=== PATIENT | female | born 1960 | race Caucasian/White ===

== ENCOUNTER 2024-01-15 08:46 | Day surgery (SDC) | payer BC ==
[~2024-01-15 08:46] MED LIST: Sodium Chloride 0.9% 10 ML Syringe FLUSH PRN; Sodium Chloride 0.9% 10 ML Syringe FLUSH SCH
[2024-01-15] MEDS: Lactated Ringers 1,000 ML IV SCH (09:20)
[2024-01-15] MEDS: oxyCODONE ER 10 MG TAB.ER PO SCH (09:59)
[2024-01-15] MEDS: Acetaminophen 325 MG Tab PO SCH (10:00)
[2024-01-15] MEDS: Pregabalin 25 MG Cap PO SCH (10:00)
[2024-01-15 10:05] LABS: INR 1.05; PROTHROMBIN TIME 11.1 SECONDS (9.7-12.0)
[2024-01-15 10:07] LABS: PTT,PARTIAL THROMBOPLSTIN TIME 26.6 SECONDS (21.7-31.4)
[2024-01-15] MEDS ORDERED: fentaNYL 100 MCG/2 ML SDV ONE (10:52)
[2024-01-15] MEDS ORDERED: Midazolam 1 MG/ML 2 ML SDV ONE (10:52)
[2024-01-15] MEDS ORDERED: Propofol 200 MG/20 ML SDV ONE ×2 (10:52→11:56)
[2024-01-15] MEDS ORDERED: Lidocaine 2% 5 ML SDV ONE (10:53)
[2024-01-15] MEDS ORDERED: ceFAZolin 2 GM Vial ONE (11:48)
[2024-01-15] MEDS: Vancomycin 1 GM SDV ONE (12:29)
[2024-01-15] MEDS: Tranexamic Acid 1,000 MG/10 ML Vial ONE (12:29)
[2024-01-15] MEDS: Morphine 8 MG, EPINEPHrine 0.3 MG, Cefuroxime 750 MG, Ketorolac 30 MG, Sodium Chloride ... PRN (12:29)
[2024-01-15] MEDS: oxyCODONE 5 MG Tab PO PRN (14:24)
== END 2024-01-15 16:06 | disposition home or self-care (01) ==
LOC: JD.SDS 08:46
PROVIDERS: ATTEND Orthopaedic Surgery
DX: M16.11 Unilateral primary osteoarthritis, right hip (principal); I10 Essential (primary) hypertension; E78.2 Mixed hyperlipidemia; K21.9 Gastro-esophageal reflux disease without esophagitis; F33.0 Major depressive disorder, recurrent, mild; Z79.899 Other long term (current) drug therapy
CPT/HCPCS: 01214; 36415; 73501-26-RT; 73501-RT; 85610; 85730; 86850; 86900; 86901; 97110-GP; 97161-GP; A9270-GY; C1713; C1776; J0171; J0690; J0697; J1885; J2250; J2270; J2704; J3010; J3370; J3490; J7120